=== PATIENT | male | born 1960 | race Caucasian/White ===

== ENCOUNTER 2020-07-01 12:02 | Emergency (ER) | payer MEDICAID ==
[~2020-07-01] VITALS: Ht 190.5 cm; Wt 127.3 kg
[2020-07-01 13:02] LABS: HEMATOCRIT 49.4 % (39.0-50.0); HEMOGLOBIN 16.5 g/dl (14.0-18.0); IMMATURE GRANULOCYTES 0.3 % (0.0-5.0); MEAN CELL VOLUME 89.8 fL CALC (80.0-100.0); MEAN CORPUSCULAR HGB CONC 33.4 g/dL CAL (32.0-36.0); NEUT# 3.29 thou/uL (1.82-7.42); RED BLOOD COUNT 5.5 mill/uL (4.70-6.10); RED CELL DISTRI WIDTH 12.8 % (11.5-15.5)
[2020-07-01 13:09] LABS: ACT PARTIAL THROMBO TIME 24.1 SECONDS (20.0-32.5); PROTHROMBIN TIME 10.2 SECONDS (9.0-12.5)
[2020-07-01 13:10] LABS: ALBUMIN 4.6 g/dL (3.2-5.0); ALKALINE PHOSPHATASE 72 u/l (38-126); ANION GAP 12 (6-22 (CALC)); BILIRUBIN, TOTAL 0.7 mg/dL (0.0-1.4); BUN 26 mg/dL (9-20); BUN/CREATININE RATIO 21 (12-20 (CALC)); CARBON DIOXIDE 26 mmol/l (22-30); CHLORIDE 104 mmol/l (95-108); CREATININE 1.3 mg/dL (0.7-1.3); GFR 56 ML/MIN (>=60 (CALC)); GFR FOR AFR.AMER. > 60 ML/MIN (>=60 (CALC)); LIPASE 129 u/l (23-300); POTASSIUM 3.5 mmol/l (3.5-5.1); SGOT/AST 57 u/l (17-59); SODIUM 138 mmol/l (137-146)
[2020-07-01 13:46] LABS: URINE BILIRUBIN - DIPSTICK NEGATIVE (NEGATIVE); URINE BLOOD DIPSTICK TRACE-LYSED (NEGATIVE); URINE COLOR YELLOW; URINE GLUCOSE - DIPSTICK NEGATIVE (NEGATIVE); URINE KETONE NEGATIVE (NEGATIVE); URINE LEUK ESTERASE NEGATIVE (NEGATIVE); URINE PROTEIN - DIPSTICK TRACE mg/dL (NEG-TRACE); URINE SPECIFIC GRAVITY 1.025; URINE UROBILINOGEN - DIPSTICK 0.2 E.U./dL (0.2)
[2020-07-01 13:48] LABS: URINE NITRITE - DIPSTICK NEGATIVE (Negative)
[2020-07-01] MEDS ORDERED: COLACE100 MG PO (14:37)
[2020-07-01] MEDS ORDERED: AMLODIPINE BESYL5 MG PO (16:52)
[2020-07-01 16:53] VITALS: BP 188/86
--- NOTE | 2020-07-03 09:32 | NUR ---
PRELIM BLOOD CX RESULTS SHOW GRAM POSITIVE COCCI IN 2 OF 4 VIALS, SAME SET. RESULTS CALLED TO DR IBARRA, ASKED TO CALL PT BUT WE HAVE NO PHONE NUMBER ON FILE. CALLED PT [facility], [facility], AND THE NUMBER THEY HAVE IS OUT OF SERVICE. DR IBARRA AWARE. WILL F/U WITH FINAL RESULTS
--- NOTE | 2020-07-04 10:04 | NUR ---
FINAL BLOOD CX RESULTS SHOW STAPH HOMINIS IN 2 OF 4, SAME SET. REPORTED TO DR BARNETT. NO F/U WARRANTED
== END 2020-07-01 17:00 | disposition home or self-care (01) ==
LOC: ED 12:02
DX: K59.00 Constipation, unspecified (principal); I10 Essential (primary) hypertension; F41.0 Panic disorder [episodic paroxysmal anxiety]; F17.200 Nicotine dependence, unspecified, uncomplicated
CPT/HCPCS: Q9967